=== PATIENT | male | born 1980 | race African-American/Black ===

== ENCOUNTER 2021-12-18 13:40 | Outpatient (RCR) | payer MEDICARE, MEDICAID, SELFPAY | END 2021-12-18 14:00 | disposition home or self-care (01) | LOC: HO.WCC 13:40 | PROVIDERS: PCP Internal Medicine; Referring Provider Student in an Organized Health Care Education/Training Program; Visit Provider Surgery | DX: Z13.89 Encounter for screening for other disorder (principal) ==

== ENCOUNTER 2022-02-25 13:25 | Outpatient (RCR) | payer MEDICARE, MEDICAID, SELFPAY | END 2022-02-26 16:23 | disposition home or self-care (01) | LOC: HO.WCC 13:25 | PROVIDERS: PCP Internal Medicine; Visit Provider Physician Assistant | DX: Z09 Encounter for follow-up examination after completed treatment for conditions other than malignant neoplasm (principal); L84 Corns and callosities; Z94.0 Kidney transplant status; Z93.0 Tracheostomy status; Z86.31 Personal history of diabetic foot ulcer | CPT/HCPCS: 99212 ==